=== PATIENT | male | born 1975 | race Caucasian/White ===

== ENCOUNTER 2017-10-27 16:24 | Inpatient (IN) | payer MEDICARE, MEDICAID ==
[~2017-10-27] VITALS: Ht 185.4 cm; Wt 165.2 kg
[~2017-10-27 16:24] MED LIST: ASEN10TA8 SL; CARV12.530 PO; FURO-151 PO; GABA-531 PO; LAMO25 PO; LITH600 PO; LITH600C PO; POTA10CA44 PO
[2017-10-27] MEDS ORDERED: OLANZapine 5 MG RAPDIS TABLET PO PRN (19:00)
[2017-10-27] MEDS: LORazepam 2 MG TABLET PO PRN (19:28)
[2017-10-27] MEDS: LITHIUM CARBONATE 300 MG CAPSULE PO SCH (19:28)
[2017-10-27 19:52] VITALS: BP 140/85
[2017-10-27] MEDS ORDERED: OLANZapine 7.5 MG TABLET PO SCH (21:00)
[2017-10-28 06:36] VITALS: BP 138/90
[2017-10-28 07:38] LABS: BASOPHILS % (AUTO) 0.7 % (0.0-2.0); EOSINOPHILS % (AUTO) 4.7 % (1.0-6.0); HEMATOCRIT 39.7 % (41-53); HEMOGLOBIN 13.3 g/dL (13.5-17.5); LYMPHOCYTES # (AUTO) 1.8 K/uL (1.0-4.8); LYMPHOCYTES % (AUTO) 31.3 % (22.0-44.0); MEAN CORPUSCULAR HEMOGLOBIN 29.3 pg (26.0-34.0); MEAN CORPUSCULAR HGB CONC 33.5 G/dL (31.0-37.0); MEAN CORPUSCULAR VOLUME 88 fL (80-100); MONOCYTES # (AUTO) 0.6 K/uL (0.1-1.0); MONOCYTES % (AUTO) 10.1 % (2.0-9.0); NEUTROPHILS % (AUTO) 53.2 % (40.0-70.0); PLATELET COUNT (AUTO) 236 K/uL (150-450); RED BLOOD CELL COUNT(AUTO) 4.53 MIL/uL (4.50-5.90); RED CELL DISTRIBUTION WIDTH 14.8 % (11.5-14.5)
[2017-10-28 08:00] VITALS: BP 117/73
[2017-10-28 08:04] LABS: ALANINE AMINOTRANSFERASE 31 U/L (12-78); ALBUMIN 3.6 g/dL (3.4-5.0); ALKALINE PHOSPHATASE 105 U/L (46-116); ANION GAP 5 mmol/L (8-16); ASPARTATE AMINOTRANSFERASE 23 U/L (15-37); BILIRUBIN,TOTAL 0.5 mg/dL (0.1-1.0); CARBON DIOXIDE 30 mmol/L (22-29); CHLORIDE 106 mmol/L (98-107); CHOLESTEROL 145 mg/dL (131-200); CREATININE 0.94 mg/dL (0.60-1.30); FREE T4 (FREE THYROXINE) 0.89 ng/dL (0.76-1.46); GLOMERULAR FILTR. RATE CALC > 60 mL/min (>60); GLUCOSE,RANDOM 101 mg/dL (70-110); HDL CHOLESTEROL 36 mg/dL (40-60); LDL CHOL (CALC.) 94 mg/dL (0-130); POTASSIUM 4.3 mmol/L (3.5-5.1); SODIUM SERUM 141 mmol/L (136-145); THYROID STIMULATING HORMONE 0.38 uIU/mL (0.36-3.74); TOTAL PROTEIN, SERUM 7.4 g/dL (6.4-8.2); TRIGLYCERIDES 73 mg/dL (15-150); UREA NITROGEN, BLOOD 11 mg/dL (7-18)
[2017-10-28 09:02] LABS: HEMOGLOBIN A1C 5.7 % (4.5-6.2)
[2017-10-28] MEDS: CARVEDILOL 12.5 MG TABLET PO SCH ×2 (09:18→16:35)
[2017-10-28] MEDS: FUROSEMIDE 40 MG TABLET PO SCH (09:18)
[2017-10-28] MEDS: LITHIUM CARBONATE 300 MG CAPSULE PO SCH ×2 (09:19→12:44)
[2017-10-28] MEDS: POTASSIUM CHLORIDE 20 MEQ ER TABLET PO SCH (09:19)
[2017-10-28] MEDS ORDERED: TUBERCULIN, PURIFIED PROTEIN DERIVATIVE 5 TU/0.1 ML SYG ID ONE (10:45)
[2017-10-28] MEDS ORDERED: PROMETHAZINE HCL 25 MG TABLET PO PRN (10:45)
[2017-10-28] MEDS ORDERED: GuaiFENesin/D-METHORPHAN [SUGAR-FREE] 200-20MG/10 ML SYRUP UDCUP PO PRN (10:45)
[2017-10-28] MEDS ORDERED: HydrOXYzine PAMOATE 50 MG CAPSULE PO PRN (10:45)
[2017-10-28] MEDS ORDERED: MAG HYDROX/AL HYDROX/SIMETH ES 30 ML SUSPENSION UDCUP PO PRN (10:45)
[2017-10-28] MEDS ORDERED: ACETAMINOPHEN 325 MG TABLET PO PRN (10:45)
[2017-10-28] MEDS ORDERED: LOPERAMIDE HCL 2 MG CAPSULE PO PRN (10:45)
[2017-10-28] MEDS ORDERED: MAGNESIUM HYDROXIDE SUSPENSION 30 ML UDCUP PO PRN (10:45)
[2017-10-28] MEDS: GABAPENTIN 300 MG CAPSULE PO SCH ×2 (12:44→16:35)
[2017-10-28] MEDS ORDERED: ASENAPINE 5 MG SUBLINGUAL TABLET SL PRN (14:00)
[2017-10-28 16:00] VITALS: BP 121/72
[2017-10-28] MEDS: THIAMINE HCL 100 MG TABLET PO SCH (16:34)
[2017-10-28] MEDS: LITHIUM CARBONATE 600 MG CAPSULE PO SCH (16:34)
[2017-10-28] MEDS: LORazepam 2 MG TABLET PO PRN (18:34)
[2017-10-28] MEDS: ASENAPINE 5 MG SUBLINGUAL TABLET SL SCH (20:39)
[2017-10-29 08:21] VITALS: BP 114/76
[2017-10-29 08:23] LABS: BASOPHILS % (AUTO) 0.6 % (0.0-2.0); EOSINOPHILS % (AUTO) 3.9 % (1.0-6.0); HEMATOCRIT 41.6 % (41-53); HEMOGLOBIN 14.1 g/dL (13.5-17.5); LYMPHOCYTES # (AUTO) 2.2 K/uL (1.0-4.8); MEAN CORPUSCULAR HEMOGLOBIN 29.7 pg (26.0-34.0); MEAN CORPUSCULAR HGB CONC 33.8 G/dL (31.0-37.0); MEAN CORPUSCULAR VOLUME 88 fL (80-100); MONOCYTES # (AUTO) 0.5 K/uL (0.1-1.0); MONOCYTES % (AUTO) 7.5 % (2.0-9.0); NEUTROPHILS # (AUTO) 3.9 K/uL (1.8-7.7); PLATELET COUNT (AUTO) 238 K/uL (150-450); RED BLOOD CELL COUNT(AUTO) 4.74 MIL/uL (4.50-5.90); RED CELL DISTRIBUTION WIDTH 15.1 % (11.5-14.5)
[2017-10-29 08:45] LABS: ALANINE AMINOTRANSFERASE 30 U/L (12-78); ALBUMIN 3.9 g/dL (3.4-5.0); ALKALINE PHOSPHATASE 110 U/L (46-116); ANION GAP 5 mmol/L (8-16); ASPARTATE AMINOTRANSFERASE 21 U/L (15-37); BILIRUBIN,TOTAL 0.5 mg/dL (0.1-1.0); CALCIUM, TOTAL 9.3 mg/dL (8.8-10.5); CARBON DIOXIDE 30 mmol/L (22-29); CHLORIDE 104 mmol/L (98-107); CHOL/HDL RATIO 4.3 (4.2-7.3); CHOLESTEROL 154 mg/dL (131-200); CREATININE 0.94 mg/dL (0.60-1.30); FREE T4 (FREE THYROXINE) 0.86 ng/dL (0.76-1.46); GLOMERULAR FILTR. RATE CALC > 60 mL/min (>60); GLUCOSE,RANDOM 102 mg/dL (70-110); HDL CHOLESTEROL 36 mg/dL (40-60); LDL CHOL (CALC.) 95 mg/dL (0-130); POTASSIUM 3.9 mmol/L (3.5-5.1); SODIUM SERUM 139 mmol/L (136-145); TOTAL PROTEIN, SERUM 7.8 g/dL (6.4-8.2); TRIGLYCERIDES 113 mg/dL (15-150); UREA NITROGEN, BLOOD 11 mg/dL (7-18)
[2017-10-29] MEDS: SULFAMETHOX/TRIMETH DS 800-160 MG/TABLET PO SCH ×2 (09:21→16:54)
[2017-10-29] MEDS: CEPHALEXIN MONOHYDRATE 500 MG CAPSULE PO SCH ×3 (09:22→16:54)
[2017-10-29] MEDS: FOLIC ACID 1 MG TABLET PO SCH (09:22)
[2017-10-29] MEDS: CARVEDILOL 12.5 MG TABLET PO SCH ×2 (09:22→16:54)
[2017-10-29] MEDS: LITHIUM CARBONATE 600 MG CAPSULE PO SCH ×2 (09:22→16:54)
[2017-10-29] MEDS: POTASSIUM CHLORIDE 20 MEQ ER TABLET PO SCH (09:22)
[2017-10-29] MEDS: FUROSEMIDE 40 MG TABLET PO SCH (09:23)
[2017-10-29] MEDS: GABAPENTIN 300 MG CAPSULE PO SCH ×3 (09:23→16:54)
[2017-10-29] MEDS: MULTIVITAMINS WITH MINERALS, THERAPEUTIC TABLET PO SCH (09:23)
[2017-10-29] MEDS: ASENAPINE 5 MG SUBLINGUAL TABLET SL SCH ×2 (09:24→20:36)
[2017-10-29] MEDS: THIAMINE HCL 100 MG TABLET PO SCH ×2 (09:24→16:54)
[2017-10-29] MEDS: LORazepam 2 MG TABLET PO PRN (14:42)
[2017-10-29 16:00] VITALS: BP 118/67
[2017-10-29] MEDS: DIAZEPAM 10 MG TABLET PO PRN (20:36)
[2017-10-29] MEDS: ZOLPIDEM TARTRATE 10 MG TABLET PO PRN (23:33)
[2017-10-30] MEDS: DIAZEPAM 10 MG TABLET PO PRN ×3 (03:40→17:35)
[2017-10-30 03:42] VITALS: BP 130/78
[2017-10-30 08:10] VITALS: BP 132/72
[2017-10-30] MEDS: FOLIC ACID 1 MG TABLET PO SCH (09:34)
[2017-10-30] MEDS: GABAPENTIN 300 MG CAPSULE PO SCH ×3 (09:34→17:35)
[2017-10-30] MEDS: LITHIUM CARBONATE 600 MG CAPSULE PO SCH (09:34)
[2017-10-30] MEDS: FUROSEMIDE 40 MG TABLET PO SCH (09:34)
[2017-10-30] MEDS: CARVEDILOL 12.5 MG TABLET PO SCH ×2 (09:34→17:35)
[2017-10-30] MEDS: POTASSIUM CHLORIDE 20 MEQ ER TABLET PO SCH (09:34)
[2017-10-30] MEDS: MULTIVITAMINS WITH MINERALS, THERAPEUTIC TABLET PO SCH (09:34)
[2017-10-30] MEDS: THIAMINE HCL 100 MG TABLET PO SCH ×2 (09:34→17:35)
[2017-10-30] MEDS: CEPHALEXIN MONOHYDRATE 500 MG CAPSULE PO SCH ×3 (09:34→17:35)
[2017-10-30] MEDS: ASENAPINE 5 MG SUBLINGUAL TABLET SL SCH ×2 (09:35→21:14)
[2017-10-30] MEDS: SULFAMETHOX/TRIMETH DS 800-160 MG/TABLET PO SCH ×2 (12:01→17:35)
[2017-10-30 13:01] VITALS: BP 132/90
[2017-10-30] MEDS: IBUPROFEN 600 MG TABLET PO PRN (13:05)
[2017-10-30 14:05] VITALS: BP 132/79
[2017-10-30 16:00] VITALS: BP 118/67
[2017-10-30] MEDS ORDERED: ASENAPINE 5 MG SUBLINGUAL TABLET SL PRN (18:00)
[2017-10-30] MEDS: ZOLPIDEM TARTRATE 10 MG TABLET PO PRN (21:15)
[2017-10-30] MEDS: LITHIUM CARBONATE 300 MG TABLET PO SCH (21:37)
[2017-10-31] MEDS: DIAZEPAM 10 MG TABLET PO PRN ×3 (04:22→20:07)
[2017-10-31 04:24] VITALS: BP 145/94
[2017-10-31 08:25] VITALS: BP 138/84
[2017-10-31 08:37] LABS: AMPHET/METH SCREEN,URINE NEGATIVE (NEGATIVE); BARBITURATE SCREEN, URINE NEGATIVE (NEGATIVE); BENZODIAZEPINES SCREEN,URINE NEGATIVE (NEGATIVE); CANNABINOID SCREEN,URINE NEGATIVE (NEGATIVE); COCAINE SCREEN,URINE NEGATIVE (NEGATIVE); METHADONE SCREEN, URINE NEGATIVE (NEGATIVE); OPIATE SCREEN,URINE NEGATIVE (NEGATIVE)
[2017-10-31 08:40] LABS: PHENCYCLIDINE SCREEN,URINE NEGATIVE (NEGATIVE)
[2017-10-31] MEDS: CARVEDILOL 12.5 MG TABLET PO SCH ×2 (08:52→16:05)
[2017-10-31] MEDS: ASENAPINE 5 MG SUBLINGUAL TABLET SL SCH (08:52)
[2017-10-31] MEDS: THIAMINE HCL 100 MG TABLET PO SCH ×2 (08:52→16:05)
[2017-10-31] MEDS: MULTIVITAMINS WITH MINERALS, THERAPEUTIC TABLET PO SCH (08:52)
[2017-10-31] MEDS: FOLIC ACID 1 MG TABLET PO SCH (08:53)
[2017-10-31] MEDS: POTASSIUM CHLORIDE 20 MEQ ER TABLET PO SCH (08:53)
[2017-10-31] MEDS: SULFAMETHOX/TRIMETH DS 800-160 MG/TABLET PO SCH ×2 (08:53→16:05)
[2017-10-31] MEDS: FUROSEMIDE 40 MG TABLET PO SCH (08:53)
[2017-10-31] MEDS: CEPHALEXIN MONOHYDRATE 500 MG CAPSULE PO SCH ×3 (08:53→16:06)
[2017-10-31] MEDS: GABAPENTIN 300 MG CAPSULE PO SCH ×3 (08:53→16:05)
[2017-10-31] MEDS: LITHIUM CARBONATE 300 MG TABLET PO SCH ×2 (08:53→16:09)
[2017-10-31] MEDS: IBUPROFEN 600 MG TABLET PO PRN (08:58)
[2017-10-31 09:01] LABS: APPEARANCE,URINE CLEAR (CLEAR); BILIRUBIN,URINE NEGATIVE (NEGATIVE); GLUCOSE, URINE (UA) NEGATIVE (NEGATIVE); KETONES,URINE NEGATIVE (NEGATIVE); LEUKOCYTE ESTERASE ,URINE NEGATIVE (NEGATIVE); NITRATE,URINE NEGATIVE (NEGATIVE); OCCULT BLOOD,URINE NEGATIVE (NEGATIVE); PROTEIN,URINE NEGATIVE (NEGATIVE); UROBILINOGEN,URINE 0.2 mg/dL (<=1.0)
[2017-10-31 09:59] VITALS: BP 129/72
[2017-10-31 16:24] VITALS: BP 136/77
[2017-10-31] MEDS: ASENAPINE 10 MG SUBLINGUAL TABLET SL SCH (20:07)
[2017-11-01 07:21] VITALS: BP 124/80
[2017-11-01 08:10] VITALS: BP 137/82
[2017-11-01] MEDS: GABAPENTIN 300 MG CAPSULE PO SCH ×3 (08:15→17:28)
[2017-11-01] MEDS: FOLIC ACID 1 MG TABLET PO SCH (08:15)
[2017-11-01] MEDS: THIAMINE HCL 100 MG TABLET PO SCH ×2 (08:15→17:28)
[2017-11-01] MEDS: CARVEDILOL 12.5 MG TABLET PO SCH ×2 (08:16→17:28)
[2017-11-01] MEDS: DOXAZOSIN MESYLATE 2 MG TABLET PO SCH ×2 (08:16→17:28)
[2017-11-01] MEDS: MULTIVITAMINS WITH MINERALS, THERAPEUTIC TABLET PO SCH (08:16)
[2017-11-01] MEDS: SULFAMETHOX/TRIMETH DS 800-160 MG/TABLET PO SCH ×2 (08:16→17:29)
[2017-11-01] MEDS: POTASSIUM CHLORIDE 20 MEQ ER TABLET PO SCH (08:16)
[2017-11-01] MEDS: CEPHALEXIN MONOHYDRATE 500 MG CAPSULE PO SCH ×3 (08:16→17:32)
[2017-11-01] MEDS: FUROSEMIDE 40 MG TABLET PO SCH (08:16)
[2017-11-01] MEDS: LITHIUM CARBONATE 300 MG TABLET PO SCH ×2 (08:17→17:28)
[2017-11-01] MEDS: DIAZEPAM 10 MG TABLET PO PRN ×2 (08:27→17:29)
[2017-11-01] MEDS: ASENAPINE 10 MG SUBLINGUAL TABLET SL SCH ×2 (08:27→20:48)
[2017-11-01 13:00] VITALS: BP 123/80
[2017-11-01 16:11] VITALS: BP 131/79
[2017-11-01] MEDS ORDERED: CARV12 PO (19:27)
[2017-11-01] MEDS ORDERED: ASEN10TA8 SL (19:27)
[2017-11-01] MEDS ORDERED: KDUR20 PO (19:27)
[2017-11-01] MEDS ORDERED: BACTDSB PO (19:27)
[2017-11-01] MEDS ORDERED: CEPH500 PO (19:27)
[2017-11-01] MEDS ORDERED: LITH300C3 PO (19:27)
[2017-11-01] MEDS ORDERED: DOXA2TAB PO (19:27)
[2017-11-01] MEDS: ZOLPIDEM TARTRATE 10 MG TABLET PO PRN (20:48)
[2017-11-02] MEDS: DIAZEPAM 10 MG TABLET PO PRN (03:51)
[2017-11-02 05:22] VITALS: BP 137/84
[2017-11-02] MEDS: THIAMINE HCL 100 MG TABLET PO SCH (08:21)
[2017-11-02] MEDS: SULFAMETHOX/TRIMETH DS 800-160 MG/TABLET PO SCH (08:21)
[2017-11-02] MEDS: LITHIUM CARBONATE 300 MG TABLET PO SCH (08:22)
[2017-11-02] MEDS: DOXAZOSIN MESYLATE 2 MG TABLET PO SCH (08:22)
[2017-11-02] MEDS: FUROSEMIDE 40 MG TABLET PO SCH (08:22)
[2017-11-02 08:25] VITALS: BP 155/96
[2017-11-02] MEDS: CARVEDILOL 12.5 MG TABLET PO SCH (08:25)
[2017-11-02] MEDS: MULTIVITAMINS WITH MINERALS, THERAPEUTIC TABLET PO SCH (08:28)
[2017-11-02] MEDS: POTASSIUM CHLORIDE 20 MEQ ER TABLET PO SCH (08:29)
[2017-11-02] MEDS: CEPHALEXIN MONOHYDRATE 500 MG CAPSULE PO SCH (08:29)
[2017-11-02] MEDS: FOLIC ACID 1 MG TABLET PO SCH (08:29)
[2017-11-02] MEDS: GABAPENTIN 300 MG CAPSULE PO SCH (08:29)
== END 2017-11-02 08:35 | disposition home or self-care (01) | DRG 885 ==
LOC: B3A 18:54
PROVIDERS: ADMIT Psychiatry & Neurology Psychiatry; ATTEND Psychiatry & Neurology Psychiatry
DX: F31.64 Bipolar disorder, current episode mixed, severe, with psychotic features (principal); E66.01 Morbid (severe) obesity due to excess calories; Z68.42 Body mass index [BMI] 45.0-49.9, adult; G62.9 Polyneuropathy, unspecified; M79.7 Fibromyalgia; R03.0 Elevated blood-pressure reading, without diagnosis of hypertension; E66.3 Overweight; Z79.899 Other long term (current) drug therapy; Z91.19 Patient's noncompliance with other medical treatment and regimen; Z91.018 Allergy to other foods; Z59.0 Homelessness
CPT/HCPCS: 80307; 83036; 84439; 84443; 86592; 87081